=== PATIENT | male | born 1950 | race Hispanic/Latino ===

== ENCOUNTER 2021-11-23 08:00 | Emergency (ER) | payer MEDICARE ==
[~2021-11-23] VITALS: Ht 165.1 cm; Wt 71.2 kg
[2021-11-23] MEDS ORDERED: CEPHALEXIN 500 MG CAPSULE ONE (09:23)
[2021-11-23] MEDS ORDERED: OCTYL 2-CYANOACRYLATE 1 EACH TP ONE (09:24)
[2021-11-23] MEDS ORDERED: TETANUS/DIPHTHERIA TOXOID [ADULT] 0.5 ML VIAL IM ONE (09:25)
[2021-11-23] MEDS ORDERED: DIPH,PERTUSS(ACELL),TET VAC/PF 0.5 ML VIAL IM SCH (09:30)
[2021-11-23] MEDS ORDERED: CEPHALEXIN 500 MG CAPSULE PO ONE (09:30)
[2021-11-23] MEDS ORDERED: OCTYL 2-CYANOACRYLATE 1 EACH TP SCH (09:30)
[2021-11-23] MEDS ORDERED: CEPH500B PO (09:49)
[2021-11-23 10:01] VITALS: BP 132/69
== END 2021-11-23 09:59 | disposition home or self-care, planned readmission (81) ==
LOC: EDH 08:00
DX: S02.2XXA Fracture of nasal bones, initial encounter for closed fracture (principal); S01.21XA Laceration without foreign body of nose, initial encounter; Z98.890 Other specified postprocedural states; W01.0XXA Fall on same level from slipping, tripping and stumbling without subsequent striking against object, initial encounter; Y93.01 Activity, walking, marching and hiking; Y92.89 Other specified places as the place of occurrence of the external cause; Y99.8 Other external cause status
CPT/HCPCS: 12011; 70450; 70486; 90471; 90714; 90715